=== PATIENT | male | born 1965 | race Caucasian/White ===

== ENCOUNTER 2016-09-28 15:40 | Emergency (ER) | payer OTHER ==
[~2016-09-28] VITALS: Ht 180.3 cm; Wt 87.5 kg
[2016-09-28 15:50] VITALS: Ht 180.3 cm; Wt 87.5 kg
[2016-09-28] MEDS ORDERED: SODIUM CHLORIDE 0.9% 1000ML 1,000 ML IV STA ×2 (16:08)
[2016-09-28 16:36] LABS: URINE APPEARANCE CLOUDY (CLEAR); URINE BILIRUBIN NEG (NEG); URINE COLOR DK YELLOW; URINE EPITHELIAL CELL AUTO 20-30 /lpf (0-5); URINE NITRITE NEG (NEG); URINE SPECIFIC GRAVITY 1.034 (1.000-1.030); UROBILINOGEN NEG (NEG)
[2016-09-28 16:46] LABS: MANUAL MICROSCOPIC REQUIRED? NO; REVIEW REQ? YES
[2016-09-28 16:49] LABS: BUN/CREATININE RATIO 13.3 (10-20); CALCIUM 8.7 mg/dl (8.5-10.1); CREATININE 1.5 mg/dl (0.60-1.40); MAGNESIUM 2.1 mg/dl (1.8-2.4); POTASSIUM 3.5 mmol/L (3.5-5.1)
[2016-09-28] MEDS ORDERED: LISI-461 PO (16:52)
[2016-09-28 16:53] LABS: HEMATOCRIT 42.6 % (42-52); MEAN CELL VOLUME 89.5 fL (80-100); MEAN CORPUSCULAR HEMOGLOBIN 31.1 pg (25-34); MEAN CORPUSCULAR HGB CONC 34.7 g/dl (32-36); MEAN PLATELET VOLUME 10.2 fL (7.4-10.4); PLATELET COUNT 94 K/uL (130-400); RED BLOOD COUNT 4.76 M/uL (4.7-6.1); WHITE BLOOD COUNT 5.69 K/uL (4.8-10.8)
[2016-09-28] MEDS ORDERED: ATOR10TA82 PO (16:53)
[2016-09-28] MEDS ORDERED: ASPI81TA28 PO (16:53)
[2016-09-28 16:54] LABS: BASO % 0.2 %; BASO ABS # 0.01 K/uL (0-0.2); COMPLETE YES; IG% 0.4 %; LYMPH ABS # 0.34 K/uL (1.2-3.4); MONO % 1.8 %; NEUT % 91.6 %; PLT ESTIMATE DECREASED
[2016-09-28 17:12] LABS: URINE MUCUS PRESENT (NONE PRSENT)
[2016-09-28 17:15] LABS: URINE PATH CASTS 5-10 GRANULAR CASTS /lpf (0)
[2016-09-28 17:18] LABS: ZZUR CULT IF INDIC CLEAN CATCH YES
--- NOTE | 2016-09-28 17:58 | EMERGENCY ROOM VISIT NOTE ---
History First contact with patient: 15:55 Chief Complaint: REFERRED BY DOCTOR Stated Complaint: DEHYDRATION, REFERRED History of Present Illness The patient is a 51 year old male who presents to the Emergency Room for evaluation of dehydration. The patient states that he has had a fever and fatigue for the past 3 days. He was seen at his primary care provider's office today and sent here for possible dehydration. He states that he has been feeling tired and worn out. He reports very minimal nausea. He denies any other symptoms. He has not had sore throat, neck pain, headache, abdominal pain , vomiting, diarrhea, earaches or cough. He states that his urine has been dark. He was told there was blood and protein in his urine. He states that he took ibuprofen prior to arrival and is feeling much better at this time. He has not had much to eat or drink in the past few days. Review of Systems A complete 10 point review of systems was reviewed with the patient with pertinent positives and negatives as per history of present illness. All else were negative. Social History Smoking Status: Never Smoker Current/Historical Medications Scheduled Aspirin (Aspirin Ec), 81 MG PO QAM Atorvastatin (Lipitor), 10 MG PO QAM Lisinopril (Zestril), 10 MG PO DAILY Allergies Coded Allergies: No Known Allergies (Unverified , 09/28/16) Physical Exam Vital Signs Date Time Temp Pulse Resp B/P (MAP) Pulse Ox O2 Delivery O2 Flow Rate FiO2 09/28/16 18:33 89 20 112/79 100 09/28/16 18:01 36.7 87 18 113/73 99 09/28/16 15:50 36.6 91 18 101/67 98 Room Air Physical Exam VITALS: Vitals are noted on the nurse's note and reviewed by myself. Vital signs stable. GENERAL: This is a 51-year-old male, in no acute distress, nondiaphoretic, well- developed well-nourished. HEENT: Normocephalic. PERRLA. EOMI. Nares patent. Mucous membranes slightly dry. Neck is supple without nuchal rigidity. HEART: Regular rate and rhythm without murmurs gallops or rubs. LUNGS: Clear to auscultation bilaterally without wheezes, rales or rhonchi. ABDOMEN: Soft, no tenderness to palpation. NEURO: Patient was alert and oriented to person place and time. Medical Decision & Procedures Laboratory Results 09/28/16 16:15 Red Blood Count 4.76, Mean Corpuscular Volume 89.5, Mean Corpuscular Hemoglobin 31.1, Mean Corpuscular Hemoglobin Concent 34.7, Mean Platelet Volume 10.2, Neutrophils (%) (Auto) 91.6, Lymphocytes (%) (Auto) 6.0, Monocytes (%) (Auto) 1.8, Eosinophils (%) (Auto) 0.0, Basophils (%) (Auto) 0.2, Neutrophils # (Auto) 5.22, Lymphocytes # (Auto) 0.34, Monocytes # (Auto) 0.10, Eosinophils # (Auto) 0.00, Basophils # (Auto) 0.01 09/28/16 16:15 Test 09/28/16 16:15 White Blood Count 5.69 K/uL (4.8-10.8) Red Blood Count 4.76 M/uL (4.7-6.1) Hemoglobin 14.8 g/dL (14.0-18.0) Hematocrit 42.6 % (42-52) Mean Corpuscular Volume 89.5 fL (80-100) Mean Corpuscular Hemoglobin 31.1 pg (25-34) Mean Corpuscular Hemoglobin Concent 34.7 g/dl (32-36) Platelet Count 94 K/uL (130-400) Mean Platelet Volume 10.2 fL (7.4-10.4) Neutrophils (%) (Auto) 91.6 % Lymphocytes (%) (Auto) 6.0 % Monocytes (%) (Auto) 1.8 % Eosinophils (%) (Auto) 0.0 % Basophils (%) (Auto) 0.2 % Neutrophils # (Auto) 5.22 K/uL (1.4-6.5) Lymphocytes # (Auto) 0.34 K/uL (1.2-3.4) Monocytes # (Auto) 0.10 K/uL (0.11-0.59) Eosinophils # (Auto) 0.00 K/uL (0-0.5) Basophils # (Auto) 0.01 K/uL (0-0.2) RDW Standard Deviation 40.3 fL (36.4-46.3) RDW Coefficient of Variation 12.3 % (11.5-14.5) Immature Granulocyte % (Auto) 0.4 % Immature Granulocyte # (Auto) 0.02 K/uL (0.00-0.02) Platelet Estimate DECREASED Urine Color DK YELLOW Urine Appearance CLOUDY (CLEAR) Urine pH 5.0 (4.5-7.5) Urine Specific [place] 1.034 (1.000-1.030) Urine Protein 2+ (NEG) Urine Glucose (UA) NEG (NEG) Urine Ketones TRACE (NEG) Urine Occult Blood 1+ (NEG) Urine Nitrite NEG (NEG) Urine Bilirubin NEG (NEG) Urine Urobilinogen NEG (NEG) Urine Leukocyte Esterase NEG (NEG) Urine WBC (Auto) 1-5 /hpf (0-5) Urine RBC (Auto) 0-4 /hpf (0-4) Urine Hyaline Casts (Auto) 0 /lpf (0-5) Urine Epithelial Cells (Auto) 20-30 /lpf (0-5) Urine Bacteria (Auto) 1+ (NEG) Urine Pathogenic Casts 5-10 GRANULAR CASTS /lpf (0) Urine Mucus PRESENT (NONE PRSENT) Urine Yeast (Auto) (NONE PRSENT) Anion Gap 12.0 mmol/L (3-11) Est Creatinine Clear Calc Drug Dose 62.7 ml/min Estimated GFR () 62.0 Estimated GFR (Non- 53.5 BUN/Creatinine Ratio 13.3 (10-20) Calcium Level 8.7 mg/dl (8.5-10.1) Magnesium Level 2.1 mg/dl (1.8-2.4) Total Bilirubin 0.8 mg/dl (0.2-1) Aspartate Amino Transf (AST/SGOT) 94 U/L (15-37) Alanine Aminotransferase (ALT/SGPT) 82 U/L (12-78) Alkaline Phosphatase 91 U/L (45-117) Total Creatine Kinase 139 U/L (39-308) Total Protein 8.1 gm/dl (6.4-8.2) Albumin 4.0 gm/dl (3.4-5.0) Globulin 4.1 gm/dl (2.5-4.0) Albumin/Globulin Ratio 1.0 (0.9-2) Hepatitis B Surface Antigen NEG (NEG) Hepatitis C Antibody NEG (NEG) HIV (1&2) Ab and P24 Ag, 4th Gener NEG (NEG) Medications Administered Medications (Trade) Dose Ordered Sig/Jess Route Start Time Stop Time Status Last Admin Dose Admin Sodium Chloride 1,000 ml @ 999 mls/hr Q1H1M STAT IV 09/28/16 16:08 09/28/16 17:08 DC 09/28/16 16:21 999 MLS/HR Sodium Chloride 1,000 ml @ 999 mls/hr Q1H1M STAT IV 09/28/16 16:08 09/28/16 17:08 DC 09/28/16 16:22 999 MLS/HR ECG Rate (beats per minute): 83 Rhythm: normal sinus Findings: no acute ischemic change, no ectopy Medical Decision Differential diagnosis includes dehydration, viral illness, acute kidney injury , urinary tract infection, among others. The patient is a 51-year-old male who presents today complaining of fatigue and febrile illness. Labs revealed no leukocytosis or concerning anemia. Patient has a mild thrombocytopenia of unknown cause. Urinalysis was not suggestive of infection, but did show proteinuria. EKG showed a normal sinus rhythm. The patient did not have any significant complaints on my evaluation. He felt dehydrated, but did have improvement after being given ibuprofen prior to arrival and 2 L normal saline solution here. He does not have a fever or tachycardia at this time. Patient does have an elevation of creatinine at 1.50 and elevation of BUN at 20, likely secondary to dehydration. He was encouraged to increase fluids at home. The patient does have a fever of unknown cause. He is mildly thrombocytopenic and LFTs are mildly elevated. I did discuss with the patient if there was any possibility of acute hepatitis or HIV infection. He did agree to testing and these are pending. Otherwise, the patient may have a viral illness and was instructed to continue ibuprofen and Tylenol, increase fluids, and follow-up with his primary care provider. The patient's case was reviewed with Dr. Peterson, ED attending physician, who agreed with my assessment and treatment plan. Based on the patient's presentation and work up, I feel the patient is stable for outpatient treatment. The patient was educated to return to the emergency department for any worsening of their current condition or new/concerning symptoms. He will follow up with his PCP. Medication reconciliation: I attest that I have personally reviewed the patient 's current medication list. Blood pressure screening: Patient was found to have normal blood pressure on screening and does not require follow-up. Impression Primary Impression: Febrile illness Additional Impression: Dehydration Departure Information Dispostion Home / Self-Care Condition GOOD Referrals Reggie Conde III, M.D. (PCP) Patient Instructions My [facility] Additional Instructions You were treated today for a febrile illness. Some results are still pending and we will contact you with these results. For pain/fever control, you can use the following [id number] medicines ( if >12 yo): - Regular strength (325mg/tab) Tylenol (acetaminophen) 2 tabs every 4-6 hours as needed. Do not exceed 12 tablets in a 24 hour period. Avoid taking more than 4 grams (4000 mg) of Tylenol per day. This includes any other sources of acetaminophen you may take on a regular basis. - Regular strength (200 mg/tab) Advil (ibuprofen) 1-2 tabs every 4-6 hours as needed. Do not exceed a dose of 3200 mg per day. You did have some abnormal lab results, including an elevated kidney function and low platelets. You should have this rechecked by your primary care provider. Call them for appointment. Return to the emergency department with any worsening or new/concerning symptoms. Problem Qualifiers
[2016-09-28 18:01] VITALS: TEMP 36.7
[2016-09-28 18:33] VITALS: BP 112/79; PULSE 89; O2SAT 100
[2016-10-02] MEDS ORDERED: DXY100 PO ×2 (10:13→10:14)
[2016-10-02] MEDS ORDERED: LCTX PO ×2 (10:13→10:14)
== END 2016-09-28 18:51 | disposition home or self-care (01) ==
LOC: C.EDB 15:41
DX: E86.0 Dehydration (principal); R50.9 Fever, unspecified; Z79.82 Long term (current) use of aspirin; Z79.899 Other long term (current) drug therapy

== ENCOUNTER 2016-09-29 17:47 | Inpatient (IN) | payer OTHER ==
[~2016-09-29] VITALS: Ht 180.3 cm; Wt 88.0 kg
[~2016-09-29 17:47] MED LIST: ASPI81TA28 PO; ATOR10TA82 PO; LISI-461 PO
[2016-09-29] MEDS ORDERED: SODIUM CHLORIDE 0.9% 1000ML 1,000 ML IV STA (18:17)
--- NOTE | 2016-09-29 18:22 | EMERGENCY ROOM VISIT NOTE ---
History First contact with patient: 18:13 Chief Complaint: DEHYDRATION Stated Complaint: DEHYDRATED,CAN'T SLEEP,VERY HARD TO EAT Nursing Triage Summary: triage note; pt reports "i was here yesterday for the same, i am tired and haven't slept since tuesday, i can't eat, i have some diarrhea and generalized pain, i have some nausea." History of Present Illness The patient is a 51 year old male who presents to the Emergency Room with complaints of 3 days of fever and unable to sleep. Fever started suddenly. No cough, nasal congestion, neck pain, light sensitivity, headache, vomiting, constipation, chest pain or shortness of breath. He has noticed some mild intermittent abdominal cramping, mild nausea (but still eating and drinking) and diarrhea (x2 watery BM since being seen in the ER). He felt relatively well after leaving the ER yesterday after his fever broke but then it returned last night and he was unable to sleep again. He is not taking anything regularly for the fever. Last had acetaminophen on Tuesday and had ibuprofen in the ER yesterday. No recent travel, exposure to sick contacts. Review of Systems See HPI for pertinent positives & negatives. A total of 10 systems reviewed and were otherwise negative. Past Medical/Surgical History Medical Problems: (1) Thrombocytopenia Social History Smoking Status: Never Smoker Smokeless Tobacco Use: No Alcohol Use: none Drug Use: none Marital Status: Housing Status: lives with family Current/Historical Medications Scheduled Aspirin (Aspirin Ec), 81 MG PO QAM Atorvastatin (Lipitor), 10 MG PO QAM Lisinopril (Zestril), 10 MG PO DAILY Allergies Coded Allergies: No Known Allergies (Unverified , 09/29/16) Physical Exam Vital Signs Date Time Temp Pulse Resp B/P (MAP) Pulse Ox O2 Delivery O2 Flow Rate FiO2 09/29/16 20:05 37.6 88 16 97/67 98 Room Air 09/29/16 19:09 96 16 107/68 96 Room Air 09/29/16 17:53 39.1 103 18 134/82 96 Room Air Physical Exam VITAL SIGNS: were reviewed as above GENERAL: mild acute distress from fever, very red and warm SKIN: Warm dry and pink, flushed, no rashes HEAD: Normocephalic and atraumatic EYES: extraocular muscles intact, pupils equal and reactive to light, no sensitivity to light OROPHARYNX: non erythematous, clear and moist NECK: Supple, no adenopathy or meningismus/neck pain LUNGS: Regular rate, no respiratory distress, clear to auscultation, no accessory muscle use HEART: Tachycardia, regular rhythm, heart sounds 1+2, no murmurs ABDOMEN: Soft and nontender, bowel sounds normal BACK: no CVA tenderness, no central spinal tenderness EXTREMITIES: Warm and well perfused, no calf tenderness/swelling, no pedal edema , peripheral capillary refill < 2 seconds NEUROLOGICALLY: Awake alert and oriented without focal deficit. Cranial nerves 2 -12 intact. Upper and lower motor and sensory examination normal. Cerebellar testing is within normal limits. There is no nystagmus. There is no facial droop. Speech is clear. Vision is grossly normal. MUSCULOSKELETAL: Good muscle tone. No evidence of trauma Medical Decision & Procedures ER Provider Diagnostic Interpretation: CHEST 2 VIEWS ROUTINE CLINICAL HISTORY: Fever of unknown origin COMPARISON STUDY: No previous studies for comparison. FINDINGS: Lung volumes are normal. No consolidation is identified. No pneumothorax or pleural effusion is identified. Cardiac size is normal. Mediastinal contours are normal. There is no evidence of pulmonary edema. IMPRESSION: No acute cardiopulmonary findings. Electronically signed by: Rosendo Harris M.D. 09/29/2016 8:19 PM Dictated Date/Time: 09/29/2016 8:18 PM ABDOMINAL ULTRASOUND, RIGHT UPPER QUADRANT HISTORY: Elevated transaminitis. COMPARISON: None. FINDINGS: Liver morphology is normal. Hepatic echogenicity is mildly increased. This suggests fatty infiltration with small areas of sparing within the gallbladder fossa. No gallstones are identified. Gallbladder wall thickness is at the upper limits of normal. There is no biliary ductal dilatation. The common bile duct measures 4 mm in caliber. The pancreatic body is normal. The head and tail are obscured. There is no right hydronephrosis. Note is made of a 4.9 cm anechoic right renal lesion consistent with a cyst. IMPRESSION: 1. Suspected fatty infiltration of the liver. 2. No gallstones or biliary ductal dilatation. Electronically signed by: Rosendo Harris M.D. 09/29/2016 8:58 PM Dictated Date/Time: 09/29/2016 8:55 PM Laboratory Results 09/29/16 18:40 Red Blood Count 4.33, Mean Corpuscular Volume 87.8, Mean Corpuscular Hemoglobin 30.0, Mean Corpuscular Hemoglobin Concent 34.2, Mean Platelet Volume 12.1, Neutrophils (%) (Auto) 79.2, Lymphocytes (%) (Auto) 13.3, Monocytes (%) (Auto) 7.5, Eosinophils (%) (Auto) 0.0, Basophils (%) (Auto) 0.0, Neutrophils # (Auto) 2.44, Lymphocytes # (Auto) 0.41, Monocytes # (Auto) 0.23, Eosinophils # (Auto) 0.00, Basophils # (Auto) 0.00 09/29/16 18:40 Test 09/29/16 18:40 White Blood Count 3.08 K/uL (4.8-10.8) Red Blood Count 4.33 M/uL (4.7-6.1) Hemoglobin 13.0 g/dL (14.0-18.0) Hematocrit 38.0 % (42-52) Mean Corpuscular Volume 87.8 fL (80-100) Mean Corpuscular Hemoglobin 30.0 pg (25-34) Mean Corpuscular Hemoglobin Concent 34.2 g/dl (32-36) Platelet Count 28 K/uL (130-400) Mean Platelet Volume 12.1 fL (7.4-10.4) Neutrophils (%) (Auto) 79.2 % Lymphocytes (%) (Auto) 13.3 % Monocytes (%) (Auto) 7.5 % Eosinophils (%) (Auto) 0.0 % Basophils (%) (Auto) 0.0 % Neutrophils # (Auto) 2.44 K/uL (1.4-6.5) Lymphocytes # (Auto) 0.41 K/uL (1.2-3.4) Monocytes # (Auto) 0.23 K/uL (0.11-0.59) Eosinophils # (Auto) 0.00 K/uL (0-0.5) Basophils # (Auto) 0.00 K/uL (0-0.2) RDW Standard Deviation 39.4 fL (36.4-46.3) RDW Coefficient of Variation 12.2 % (11.5-14.5) Immature Granulocyte % (Auto) 0.0 % Immature Granulocyte # (Auto) 0.00 K/uL (0.00-0.02) Platelet Estimate SIGNIFIC DECREASED Immature Platelet Fraction 12.2 % (0.9-8.3) Red Blood Cell Morphology Unremarkable Erythrocyte Sedimentation Rate 24 mm/hr (0-14) Absolute Reticulocyte Count 0.02 10^6/uL (0.02-0.10) Percent Reticulocyte Count 0.5 % (0.5-2.0) Prothrombin Time 13.2 SECONDS (9.0-12.0) Prothromb Time International Ratio 1.2 (0.9-1.1) Activated Partial Thromboplast Time 34.3 SECONDS (21.0-31.0) Partial Thromboplastin Ratio 1.3 Anion Gap 11.0 mmol/L (3-11) Est Creatinine Clear Calc Drug Dose 62.7 ml/min Estimated GFR () 62.0 Estimated GFR (Non- 53.5 BUN/Creatinine Ratio 11.3 (10-20) Lactic Acid Level 1.4 mmol/L (0.4-2.0) Calcium Level 7.9 mg/dl (8.5-10.1) Total Bilirubin 0.8 mg/dl (0.2-1) Direct Bilirubin 0.2 mg/dl (0-0.2) Aspartate Amino Transf (AST/SGOT) 166 U/L (15-37) Alanine Aminotransferase (ALT/SGPT) 108 U/L (12-78) Alkaline Phosphatase 107 U/L (45-117) Total Creatine Kinase 300 U/L (39-308) Total Protein 7.0 gm/dl (6.4-8.2) Albumin 3.2 gm/dl (3.4-5.0) Lipase 353 U/L (73-393) Procalcitonin 2.62 ng/ml (0-0.5) Lyme Disease IgG Antibody NEG (NEG) Lyme Disease IgM Antibody NEG (NEG) Monoscreen NEG (NEG) Medications Administered Medications (Trade) Dose Ordered Sig/Jess Route Start Time Stop Time Status Last Admin Dose Admin Sodium Chloride 1,000 ml @ 999 mls/hr Q1H1M STAT IV 09/29/16 18:17 09/29/16 19:17 DC 09/29/16 19:07 999 MLS/HR Acetaminophen (Tylenol Tab) 650 mg NOW STAT PO 09/29/16 18:33 09/29/16 19:17 DC 09/29/16 19:09 650 MG ED Course 6:15am Complete history and physical performed, Sepsis labs ordered, antibiotics deferred given most likely diagnosis on admission of gastroenteritis , acetaminophen given for fever Discussed case with Dr Richardson who separately performed history and examination Labs showed worsening transaminitis, therefore US liver ordered Critical lab Plt 28. No active bleeding on re-examination. Called [facility] Hematology for management advice (see below) Patient was referred to [facility] hospitalist team for admission Zosyn ordered due to sepsis Medical Decision Prior records/ancillary studies reviewed. Triage Nursing notes reviewed. Additional history obtained from patient. The patient's history was concerning for persistent fever. Differential diagnosis: Etiologies such as viral syndrome, otitis, pharyngitis, pneumonia, influenza, meningitis, encephalitis, urinary tract infection, sepsis, bacteremia, as well as others were entertained. Physical examination: as above ER treatment provided: acetaminophen, IV fluids On reassessment the patient felt no better. Diagnostics interpreted by me: The labs revealed elevated transaminitis with pancytopenia, WBC 3.08, Hgb 13, Plt 28 Imaging studies: US liver limited - fatty liver disease only CXR - no active disease Consultation: [facility] hematology were contacted and advised additional labs (see below), no steroids at this time as not confirmed as ITP. Advised inpatient admission A consultation was placed with hospitalist. The case was discussed and diagnostics were reviewed. The patient was evaluated in the ER for further treatment. This appears to be consistent with sepsis (suspected GI tract given diarrhea) with thrombocytopenia (ITP vs. TTP vs. DIC) and worsening transaminitis. By the evaluation outlined above emergent etiologies such as otitis, pharyngitis, pneumonia, meningitis, urinary tract infection as well as others were deemed relatively unlikely. The patient was informed about the findings as listed above. All questions were answered and he was pleased with the treatment and plan for admission. Return instructions were outlined and the patient was discharged in stable condition. Consults Time Called: 19:36 Consulting Physician: Dr Lu ([facility] Heme/Onc) Returned Call: 19:50 Advised admission to hospitalist service No steroids indicated at present Additional labs recommended: peripheral smear, retic count, haptoglobin, d-dimer , fibrinogen, fibrin degradation products, immature platelet fraction Additional Consults: Time Called: 20:00 Consulted Physician: Dr Petty ([facility] Hospitalist Service) Returned Call: 20:05 Impression Primary Impression: Sepsis Additional Impressions: Pancytopenia Transaminitis Dehydration Departure Information Dispostion Being Evaluated By Hospitalist Condition FAIR Referrals Reggie Conde III, M.D. (PCP) Patient Instructions My [facility] Resident Tracking Resident Involvement: Resident Care Provided Care Provided: Adult Hospital Medicine Problem Qualifiers Primary Impression: Sepsis Sepsis type: sepsis due to unspecified organism Qualified Codes: A41.9 - Sepsis, unspecified organism
[2016-09-29] MEDS ORDERED: ACETAMINOPHEN 325 MG TAB PO STA (18:33)
[2016-09-29 19:10] LABS: BUN/CREATININE RATIO 11.3 (10-20); CALCIUM 7.9 mg/dl (8.5-10.1); CREATININE 1.5 mg/dl (0.60-1.40); POTASSIUM 3.4 mmol/L (3.5-5.1)
[2016-09-29 19:27] LABS: COMPLETE YES; LYMPH % 13.3 %; LYMPH ABS # 0.41 K/uL (1.2-3.4); MEAN CELL VOLUME 87.8 fL (80-100); MEAN CORPUSCULAR HGB CONC 34.2 g/dl (32-36); MEAN PLATELET VOLUME 12.1 fL (7.4-10.4); MONO % 7.5 %; NEUT % 79.2 %; PLATELET COUNT 28 K/uL (130-400); PLT ESTIMATE SIGNIFIC DECREASED; RED BLOOD COUNT 4.33 M/uL (4.7-6.1); WHITE BLOOD COUNT 3.08 K/uL (4.8-10.8)
[2016-09-29 19:38] LABS: INR 1.2 (0.9-1.1); PARTIAL THROMBOPLASTIN RATIO 1.3; PROTHROMBIN TIME (PATIENT) 13.2 SECONDS (9.0-12.0)
[2016-09-29] MEDS ORDERED: PIPERACILLIN/TAZOBACTAM 3.375 GM/100ML D5W IV STA (20:09)
[2016-09-29] MEDS ORDERED: SODIUM CHLORIDE 0.9% 1000ML 1,000 ML IV SCH (20:15)
[2016-09-29] MEDS ORDERED: ACETAMINOPHEN 325 MG TAB PO PRN (20:15)
--- NOTE | 2016-09-29 20:20 | DIAGNOSTIC IMAGING REPORT ---
CHEST 2 VIEWS ROUTINE CLINICAL HISTORY: Fever of unknown origin COMPARISON STUDY: No previous studies for comparison. FINDINGS: Lung volumes are normal. No consolidation is identified. No pneumothorax or pleural effusion is identified. Cardiac size is normal. Mediastinal contours are normal. There is no evidence of pulmonary edema. IMPRESSION: No acute cardiopulmonary findings. Electronically signed by: Rosendo Harris M.D. 09/29/2016 8:19 PM Dictated Date/Time: 09/29/2016 8:18 PM
--- NOTE | 2016-09-29 20:21 | History and Physical ---
History & Physical Date & Time of Service: Sep 29, 2016 at 20:20 Chief Complaint: Dehydrated,Can't Sleep,Very Hard To Eat Primary Care Physician: Reggie Conde III, M.D. History of Present Illness Source: patient The patient is a 51 year old male with no significant PMH, who presents to the Emergency Room with complaints of fever. Patient's symptoms started 3 days ago with sudden onset of fatigue followed by fever for which he came to ER from PCP office. on 09/28/16- in ER- CBC- no leucocytosis, platelets-94, creatinine1.50 - was discharged home with possible diagnosis of viral illness. Returned back to ER because he felt worsening of fatigue, with new onset nausea, headaches, continued to have poor appetite- decreased PO intake. Had 2 loose BMs today with no blood. No abdominal pain, vomiting, cough, SOB, chest pain, rash, leg swelling, joint pains. Admits to few tick bites 1.5 weeks ago when [place]. No recent travel, exposure to sick contacts. In ED, febrile with 39.1, CBC- Wbc 3.08, platelets- 28, creatinine 1.50, K 3.4, AST/ALT- worsened from yesterday - 166/108. ED physician discussed with judge's clerk, who recommended blood tests which were ordered. Received a dose of IV Zosyn in ER. We will admit him for further evaluation and management of febrile illness with thrombocytopenia/leucopenia, PASTOR. Social History Smoking Status: Never Smoker Smokeless Tobacco Use: No Drug Use: none Marital Status: Allergies Coded Allergies: No Known Allergies (Unverified , 09/29/16) Home Medications Scheduled Aspirin (Aspirin Ec), 81 MG PO QAM Atorvastatin (Lipitor), 10 MG PO QAM Lisinopril (Zestril), 10 MG PO DAILY Review of Systems Constitutional: + fever, No weight loss Eyes: No redness, No discharge ENT: No hearing loss, No nasal symptoms Respiratory: No cough, No sputum, No wheezing, No shortness of breath Cardiovascular: No chest pain, No edema, No palpitations Abdomen: + nausea, + diarrhea, No pain, No vomiting, No GI bleeding Musculoskeletal: + muscle pain, No joint pain Genitourinary - Male: No hematuria, No urinary frequency Neurologic: No memory loss, No paralysis, No weakness Psychiatric: No depression symptoms Endocrine: + fatigue Hematologic / Lymphatic: No abnormal bleeding/bruising Integumentary: No rash Physical Exam Vital Signs Date Time Temp Pulse Resp B/P (MAP) Pulse Ox O2 Delivery O2 Flow Rate FiO2 09/29/16 20:05 37.6 88 16 97/67 98 Room Air 09/29/16 19:09 96 16 107/68 96 Room Air 09/29/16 17:53 39.1 103 18 134/82 96 Room Air General Appearance: no apparent distress Head: normocephalic, atraumatic Eyes: PERRL ENT: hearing grossly normal Neck: supple, no JVD Respiratory/Chest: chest non-tender, lungs clear, normal breath sounds, no respiratory distress, no accessory muscle use Cardiovascular: regular rate, rhythm, no edema, no murmur Abdomen/GI: normal bowel sounds, non tender, soft, no organomegaly Back: no CVA tenderness Extremities/Musculoskelatal: no calf tenderness, no pedal edema Neurologic/Psych: no motor/sensory deficits, alert, oriented x 3 Skin: normal color, no rash Lymphatic: no adenopathy Diagnostics Laboratory Results Results Past 24 Hours Test 09/29/16 18:40 09/29/16 19:56 09/29/16 20:05 09/29/16 20:13 Range/Units White Blood Count 3.08 4.8-10.8 K/uL Red Blood Count 4.33 4.7-6.1 M/uL Hemoglobin 13.0 14.0-18.0 g/dL Hematocrit 38.0 42-52 % Mean Corpuscular Volume 87.8 80-100 fL Mean Corpuscular Hemoglobin 30.0 25-34 pg Mean Corpuscular Hemoglobin Concent 34.2 32-36 g/dl Platelet Count 28 130-400 K/uL Mean Platelet Volume 12.1 7.4-10.4 fL Neutrophils (%) (Auto) 79.2 % Lymphocytes (%) (Auto) 13.3 % Monocytes (%) (Auto) 7.5 % Eosinophils (%) (Auto) 0.0 % Basophils (%) (Auto) 0.0 % Neutrophils # (Auto) 2.44 1.4-6.5 K/uL Lymphocytes # (Auto) 0.41 1.2-3.4 K/uL Monocytes # (Auto) 0.23 0.11-0.59 K/uL Eosinophils # (Auto) 0.00 0-0.5 K/uL Basophils # (Auto) 0.00 0-0.2 K/uL RDW Standard Deviation 39.4 36.4-46.3 fL RDW Coefficient of Variation 12.2 11.5-14.5 % Immature Granulocyte % (Auto) 0.0 % Immature Granulocyte # (Auto) 0.00 0.00-0.02 K/uL Platelet Estimate SIGNIFIC DECREASED Red Blood Cell Morphology Unremarkable Prothrombin Time 13.2 9.0-12.0 SECONDS Prothromb Time International Ratio 1.2 0.9-1.1 Activated Partial Thromboplast Time 34.3 21.0-31.0 SECONDS Partial Thromboplastin Ratio 1.3 Sodium Level 135 136-145 mmol/L Potassium Level 3.4 3.5-5.1 mmol/L Chloride Level 98 98-107 mmol/L Carbon Dioxide Level 26 21-32 mmol/L Anion Gap 11.0 3-11 mmol/L Blood Urea Nitrogen 17 7-18 mg/dl Creatinine 1.50 0.60-1.40 mg/dl Est Creatinine Clear Calc Drug Dose 62.7 ml/min Estimated GFR () 62.0 Estimated GFR (Non- 53.5 BUN/Creatinine Ratio 11.3 10-20 Random Glucose 132 70-99 mg/dl Lactic Acid Level 1.4 0.4-2.0 mmol/L Calcium Level 7.9 8.5-10.1 mg/dl Total Bilirubin 0.8 0.2-1 mg/dl Direct Bilirubin 0.2 0-0.2 mg/dl Aspartate Amino Transf (AST/SGOT) 166 15-37 U/L Alanine Aminotransferase (ALT/SGPT) 108 12-78 U/L Alkaline Phosphatase 107 45-117 U/L Total Creatine Kinase 300 39-308 U/L Total Protein 7.0 6.4-8.2 gm/dl Albumin 3.2 3.4-5.0 gm/dl Lipase 353 73-393 U/L Test 09/29/16 20:14 Range/Units Microbiology Results 09/29/16 Blood Culture, Received Pending 09/29/16 Blood Culture, Received Pending Diagnostic Radiology CXR- No acute findings. Impression Assessment and Plan FEVER: Likely Tick borne illness vs viral infection given the presentation Patient presented with fever, fatigue, nausea associated with thrombocytopenia, leucopenia, mildly elevated LFTs. Had few tick bites 1.5 weeks ago when he went into [facility]. Can see similar presentation with lymes/anaplasmosis co infection and with symptoms of acute onset, young patient with no prior illness, likely this could be the cause. -Will start him on Doxycycline empirically and see if clinically feels better and blood work improves. Received zosyn in ER. Would avoid any other antibiotics as no localized signs of bacterial infection and it can worsen if it is lymes. -IVF -Blood cx x 2, UA- yesterday- no sig UTI, Urine cx- neg, CXR - no sig abnormalities -Work up sent today- Lymes , Anaplasmosis antibodies, ESR, procalcitonin, CRP, [place] test, C diff PANCYTOPENIA Specifically thrombocytopenia, leucopenia--> worsened compared to yesterday -Could be secondary to tick borne illness vs viral illness. -ITP possibility considered per discussion with Hematology, though doubt this is ITP, seems more likely to be infection related. -Work up sent- Peripheral smear, FDP, Fibrinogen, Haptoglobin, Retic count, D dimer, Immature platelet fraction, LDH per judge's clerk -No signs of active bleeding, so for now monitor closely -ER consulted Hematology. MILDLY ELEVATED LFTS Worsened compared to yesterday Likely associated with above. -US ordered by ER physician - follow up -Monitor trend. PASTOR Likely pre renal secondary to volume depletion, febrile illness -IVF at 100 cc/hour -Avoid nephrotoxic medications -Monitor MILD HYPOKALEMIA Likely secondary to above, decreased PO intake -Replaced, -Monitor DVT PROPHYLAXIS Low risk SCDS/TEDS re: thrombocytopenia DISPOSITION Admit to med-surg Level of Care Med/Surg Resuscitation Status FULL RESUSCITATION VTE Prophylaxis VTE Risk Assessment Done? Y/N: Yes Risk Level: Low
[2016-09-29 20:30] LABS: IPF 12.2 % (0.9-8.3)
[2016-09-29] MEDS ORDERED: POTASSIUM CHLORIDE 10 MEQ TABCR PO SCH (20:30)
--- NOTE | 2016-09-29 20:59 | DIAGNOSTIC IMAGING REPORT ---
ABDOMINAL ULTRASOUND, RIGHT UPPER QUADRANT HISTORY: Elevated transaminitis. COMPARISON: None. FINDINGS: Liver morphology is normal. Hepatic echogenicity is mildly increased. This suggests fatty infiltration with small areas of sparing within the gallbladder fossa. No gallstones are identified. Gallbladder wall thickness is at the upper limits of normal. There is no biliary ductal dilatation. The common bile duct measures 4 mm in caliber. The pancreatic body is normal. The head and tail are obscured. There is no right hydronephrosis. Note is made of a 4.9 cm anechoic right renal lesion consistent with a cyst. IMPRESSION: 1. Suspected fatty infiltration of the liver. 2. No gallstones or biliary ductal dilatation. Electronically signed by: Rosendo Harris M.D. 09/29/2016 8:58 PM Dictated Date/Time: 09/29/2016 8:55 PM
[2016-09-29] MEDS ORDERED: PIPERACILL/TAZOBAC IV 3.375 GM in DEXTROSE 5% 100ML IV ONE (21:00)
[2016-09-29 21:10] LABS: LYME DISEASE AB IGG NEG (NEG); LYME DISEASE AB IGM NEG (NEG)
[2016-09-29] MEDS ORDERED: ZOLPIDEM TARTRATE 5 MG TAB PO ONE (21:15)
[2016-09-29] MEDS: SODIUM CHLORIDE 0.9% 1000ML 1,000 ML IV SCH (21:15)
[2016-09-29 21:18] VITALS: BP 93/49; PULSE 71; TEMP 36.7; O2SAT 95
[2016-09-29 21:22] VITALS: BP 93/49; PULSE 71; TEMP 36.7; O2SAT 95; Ht 180.3 cm; Wt 88.0 kg
[2016-09-29] MEDS: DOXYCYCLINE HYCLATE 100 MG CAP PO SCH (21:51)
[2016-09-29 22:22] LABS: FIBRINOGEN* 317 mg/dl (184-400)
[2016-09-29 23:16] VITALS: BP 108/71; PULSE 78; TEMP 36.6; O2SAT 98
--- NOTE | 2016-09-29 23:49 | EMERGENCY ROOM VISIT NOTE ---
ED Visit Note First contact with patient: 18:11 Resident Physician Supervision Note: Dr. Richar Ireland was resident physician during care of patient. I separately evaluated patient and did history and exam. I discussed the case with the resident and generally agree with the findings and plan. 51 yr old male arrives 24 hours after being seen for dehydration fever of unknown origin. Yesterday with mild LFT elevation and mild thrombocytopenia. Symptoms persistent and worsening. Now with severe thrombocytopenia, doubling of LFTs and clearly unwell appearing. Seems more likely this is ITP rather than TTP. Will give empiric abx though not overtly septic at this time. Hematology aware, will bring in to medical team for further management. Diagnosis: Acute Thrombocytopenia Acute Hepatitis Febrile Illness Documented By: Brad Richardson MD
[2016-09-30 06:10] LABS: BUN/CREATININE RATIO 14.2 (10-20); CALCIUM 8.3 mg/dl (8.5-10.1); CREATININE 1.2 mg/dl (0.60-1.40); POTASSIUM 3.8 mmol/L (3.5-5.1)
[2016-09-30 06:11] LABS: PLATELET COUNT 28 K/uL (130-400)
[2016-09-30 06:13] LABS: ALB/GLOB RATIO 0.8 (0.9-2)
[2016-09-30 06:15] LABS: HEMATOCRIT 37.5 % (42-52); MEAN CELL VOLUME 89.1 fL (80-100); MEAN CORPUSCULAR HEMOGLOBIN 30.4 pg (25-34); MEAN CORPUSCULAR HGB CONC 34.1 g/dl (32-36); MEAN PLATELET VOLUME 12.6 fL (7.4-10.4); RED BLOOD COUNT 4.21 M/uL (4.7-6.1); WHITE BLOOD COUNT 3.61 K/uL (4.8-10.8)
[2016-09-30 06:18] LABS: PLT ESTIMATE SIGNIFIC DECREASED
[2016-09-30 07:48] VITALS: BP 100/65; PULSE 66; TEMP 36.5; O2SAT 98
[2016-09-30] MEDS: SODIUM CHLORIDE 0.9% 1000ML 1,000 ML IV SCH ×2 (08:57→17:31)
[2016-09-30] MEDS: DOXYCYCLINE HYCLATE 100 MG CAP PO SCH ×2 (08:57→21:15)
[2016-09-30] MEDS ORDERED: ATORVASTATIN 10 MG TAB PO SCH (09:00)
--- NOTE | 2016-09-30 13:03 | Medical Consult ---
Consultation Date of Consultation: Sep 30, 2016. Attending Physician: Severo Suarez MD Reason for Consultation: thrombocytopenia History of Present Illness 51-year-old man with no significant past medical history who is admitted with fever. He states that he has been having fevers for past 4 days. He also has fatigue, malaise and decreased appetite and loose stool. He went to ER on September 28, 2016 and [place] [address]. he states that he also has nausea and diarrhea for about 3 days. He denies any abdominal pain. He denies any abdominal pain. He denies any cough or shortness of breath. He denies any chest pain. He denies any dizziness or headaches. He denies any arthralgias or myalgias. [place] [address]. he also has leukopenia with absolute lymphopenia. He also has elevated AST and ALT. He states that he had tick bite about a week and a half ago. He denies any sick contacts. Past Medical/Surgical History PAST MEDICAL HISTORY: Denies any PMH PAST SURGICAL HISTORY: appendectomy about 30 years ago Active Problems: Dehydration Status: Acute Febrile illness Status: Acute Transaminitis Status: Acute thrombocytopenia Family History mother had pancreatic cancer. He denies any family history of any blood or bleeding disorder Social History Smoking Status: Never Smoker Smokeless Tobacco Use: No Drug Use: none Marital Status: Housing Status: lives with family Allergies Coded Allergies: No Known Allergies (Unverified , 09/29/16) Current Inpatient Medications Current Inpatient Medications Medications (Trade) Dose Ordered Sig/Jess Route Start Time Stop Time Status Last Admin Dose Admin Acetaminophen (Tylenol Tab) 650 mg Q6H PRN PO 09/29/16 20:15 10/29/16 20:14 Sodium Chloride 1,000 ml @ 100 mls/hr Q10H IV 09/29/16 21:15 10/29/16 20:14 09/30/16 08:57 100 MLS/HR Doxycycline Hyclate (Vibramycin Cap) 100 mg BID PO 09/29/16 22:00 10/09/16 21:59 09/30/16 08:57 100 MG Review of Systems Constitutional: + fever, + fatigue, No chills, No weight loss, No weakness Eyes: No worsening of vision, No eye pain ENT: No unusual epistaxis, No nasal symptoms, No sore throat, No trouble swallowing Respiratory: No cough, No sputum, No wheezing, No shortness of breath, No dyspnea on exertion, No dyspnea at rest, No hemoptysis Cardiovascular: No chest pain, No orthopnea, No PND, No edema Abdomen: + nausea, + diarrhea, No pain, No vomiting, No constipation, No GI bleeding Musculoskeletal: No joint pain, No muscle pain, No swelling, No calf pain Genitourinary - Male: No hematuria, No dysuria, No urinary frequency Neurologic: No weakness, No numbness/tingling, No vertigo Endocrine: No fatigue Hematologic / Lymphatic: No abnormal bleeding/bruising, No clotting problems, No swollen lymph nodes Integumentary: No rash, No itch Allergic / Immunologic: + environmental allergies, No frequent infections Physical Exam Date Time Temp Pulse Resp B/P (MAP) Pulse Ox O2 Delivery O2 Flow Rate FiO2 09/30/16 08:00 Room Air 09/30/16 07:48 36.5 66 17 100/65 (77) 98 Room Air 09/30/16 00:00 Room Air 09/29/16 23:16 36.6 78 20 108/71 (83) 98 Room Air 09/29/16 21:57 Room Air 09/29/16 21:22 36.7 71 16 93/49 95 Room Air 09/29/16 21:18 36.7 71 16 93/49 (64) 95 Room Air 09/29/16 21:10 74 16 96/61 98 Room Air 09/29/16 20:05 37.6 88 16 97/67 98 Room Air 09/29/16 19:09 96 16 107/68 96 Room Air 09/29/16 17:53 39.1 103 18 134/82 96 Room Air General Appearance: WD/WN, no apparent distress Head: normocephalic, atraumatic Eyes: EOMI, sclerae normal ENT: pharynx normal Neck: supple, no adenopathy, no JVD Respiratory/Chest: chest non-tender, lungs clear, normal breath sounds, no respiratory distress, no accessory muscle use Cardiovascular: regular rate, rhythm, no edema, no gallop, no JVD, no murmur Abdomen/GI: normal bowel sounds, non tender, soft, no organomegaly Back: normal inspection, no CVA tenderness Extremities/Musculoskelatal: no calf tenderness, non-tender Neurologic/Psych: no motor/sensory deficits (grossly), oriented x 3 Laboratory Results Last 24 Hours Test 09/29/16 18:40 09/29/16 21:05 09/30/16 05:10 White Blood Count 3.08 K/uL 3.61 K/uL Red Blood Count 4.33 M/uL 4.21 M/uL Hemoglobin 13.0 g/dL 12.8 g/dL Hematocrit 38.0 % 37.5 % Mean Corpuscular Volume 87.8 fL 89.1 fL Mean Corpuscular Hemoglobin 30.0 pg 30.4 pg Mean Corpuscular Hemoglobin Concent 34.2 g/dl 34.1 g/dl Platelet Count 28 K/uL 28 K/uL Mean Platelet Volume 12.1 fL 12.6 fL Neutrophils (%) (Auto) 79.2 % Lymphocytes (%) (Auto) 13.3 % Monocytes (%) (Auto) 7.5 % Eosinophils (%) (Auto) 0.0 % Basophils (%) (Auto) 0.0 % Neutrophils # (Auto) 2.44 K/uL Lymphocytes # (Auto) 0.41 K/uL Monocytes # (Auto) 0.23 K/uL Eosinophils # (Auto) 0.00 K/uL Basophils # (Auto) 0.00 K/uL RDW Standard Deviation 39.4 fL 40.7 fL RDW Coefficient of Variation 12.2 % 12.6 % Immature Granulocyte % (Auto) 0.0 % Immature Granulocyte # (Auto) 0.00 K/uL Platelet Estimate SIGNIFIC DECREASED SIGNIFIC DECREASED Immature Platelet Fraction 12.2 % Red Blood Cell Morphology Unremarkable Peripheral Blood Smear Path Consult Erythrocyte Sedimentation Rate 24 mm/hr Absolute Reticulocyte Count 0.02 10^6/uL Percent Reticulocyte Count 0.5 % Prothrombin Time 13.2 SECONDS Prothromb Time International Ratio 1.2 Activated Partial Thromboplast Time 34.3 SECONDS Partial Thromboplastin Ratio 1.3 Sodium Level 135 mmol/L 141 mmol/L Potassium Level 3.4 mmol/L 3.8 mmol/L Chloride Level 98 mmol/L 106 mmol/L Carbon Dioxide Level 26 mmol/L 29 mmol/L Anion Gap 11.0 mmol/L 6.0 mmol/L Blood Urea Nitrogen 17 mg/dl 17 mg/dl Creatinine 1.50 mg/dl 1.20 mg/dl Est Creatinine Clear Calc Drug Dose 62.7 ml/min 78.4 ml/min Estimated GFR () 62.0 81.2 Estimated GFR (Non- 53.5 70.1 BUN/Creatinine Ratio 11.3 14.2 Random Glucose 132 mg/dl 113 mg/dl Lactic Acid Level 1.4 mmol/L Calcium Level 7.9 mg/dl 8.3 mg/dl Total Bilirubin 0.8 mg/dl 0.7 mg/dl Direct Bilirubin 0.2 mg/dl Aspartate Amino Transf (AST/SGOT) 166 U/L 123 U/L Alanine Aminotransferase (ALT/SGPT) 108 U/L 100 U/L Alkaline Phosphatase 107 U/L 100 U/L Total Creatine Kinase 300 U/L Total Protein 7.0 gm/dl 6.7 gm/dl Albumin 3.2 gm/dl 3.0 gm/dl Lipase 353 U/L Procalcitonin 2.62 ng/ml Lyme Disease IgG Antibody NEG Lyme Disease IgM Antibody NEG Monoscreen NEG Fibrinogen 317 mg/dl Fibrin Degradation Products >40 mcg/ml D-Dimer > 23528 ug/L FEU Lactate Dehydrogenase 503 U/L Globulin 3.7 gm/dl Albumin/Globulin Ratio 0.8 Peripheral smear reviewed. No schistocytes. platelets are low with occasional large platelets no clumping seen no parasites seen, neutrophils with some toxic vacuoles, no blasts seen Assessment & Plan 51 year old male admitted with febrile illness, and transaminitis. He has significant thrombocytopenia D dimer and FDP were elevated though PT/PTT not significantly prolonged Thrombocytopenia likely secondary to underlying infection. Recommend monitor CBC w/ diff Repeat D dimer and FSP and fibrinogen and coags Recommend ID consult - he reports recent tick bites Also recommend rule out viral infections - check Hepatitis screen and consider HIV screen I called and discussed with Dr Suarez
--- NOTE | 2016-09-30 14:19 | DIAGNOSTIC IMAGING REPORT ---
ULTRASOUND VENOUS DOPPLER LWR EXT BILA CLINICAL HISTORY: Leg swelling. Thrombocytopenia. Febrile illness. COMPARISON STUDY: No previous studies for comparison. FINDINGS: Real-time and color flow Doppler imaging were performed. Flow was seen within the femoral, popliteal and calf veins with no intraluminal thrombus demonstrated. The saphenous vein is patent. IMPRESSION: No evidence of lower extremity DVT. Electronically signed by: Adriano Yu M.D. 09/30/2016 2:18 PM Dictated Date/Time: 09/30/2016 2:18 PM
[2016-09-30 15:21] VITALS: BP 119/85; PULSE 81; TEMP 36.4; O2SAT 99
[2016-09-30 16:09] LABS: BASO % 0.9 %; BASO ABS # 0.03 K/uL (0-0.2); COMPLETE YES; GIANT PLATELETS 1+; HEMATOCRIT 40.2 % (42-52); IG% 0.3 %; LYMPH % 18.3 %; LYMPH ABS # 0.64 K/uL (1.2-3.4); MEAN CELL VOLUME 87.2 fL (80-100); MEAN CORPUSCULAR HEMOGLOBIN 29.5 pg (25-34); MEAN CORPUSCULAR HGB CONC 33.8 g/dl (32-36); MEAN PLATELET VOLUME 13.5 fL (7.4-10.4); MONO % 11.2 %; NEUT % 69.3 %; PLATELET COUNT 31 K/uL (130-400); RED BLOOD COUNT 4.61 M/uL (4.7-6.1); VACUOLIZATION OCCASIONAL; WHITE BLOOD COUNT 3.49 K/uL (4.8-10.8)
--- NOTE | 2016-09-30 17:14 | Medical Consult ---
Consultation Date of Consultation: Sep 30, 2016. Attending Physician: Severo Suarez MD Reason for Consultation: Tick bite History of Present Illness Patient is an otherwise healthy 51-year-old male who presented to the emergency department with complaints of 3 days of high fever to 103 and insomnia. The patient states that his fever started very abruptly, and he had no associated symptoms initially. He then started to have slight headache, abdominal cramping , nausea, myalgias, and sweats. He had been evaluated in the emergency department 1 day prior to admission and was thought to have dehydration at that time. The patient's labs were stable time, and he was given IV fluids and discharged to home. Upon current admission, the patient's white blood cell count was 3.08, and his platelet count was 28. It was also noted that his liver enzymes were elevated with an AST of 166, and ALT of 108. The patient had blood cultures drawn and urine culture completed. His blood cultures have shown no growth to date. Urine culture was negative. He was started empirically on IV Zosyn and p.o. doxycycline. He states that he has improved substantially since night. The patient did also have a liver ultrasound completed which showed a suspected fatty liver infiltration. Chest x-ray showed no acute disease. Venous Doppler of the bilateral lower extremities showed no evidence of DVT. Patient does not necessarily recall a tick bite, and he is not in the [place] often, but he did have to [place] his beagle into the [place] the other day because it ran off. He feels that this is most likely the time he would have picked up a tick, but he does also note that he often gets deer in his yard. Past Medical/Surgical History Medical Problems: (1) Dehydration Status: Acute (2) Febrile illness Status: Acute (3) Pancytopenia Status: Acute (4) Sepsis Status: Acute (5) Transaminitis Status: Acute Medical Problems: (1) Thrombocytopenia Surgical Hx: Appendectomy (30 years ago) Family History Noncontributory Social History Smoking Status: Never Smoker Smokeless Tobacco Use: No Drug Use: none Marital Status: Housing Status: lives with family Allergies Coded Allergies: No Known Allergies (Unverified , 09/29/16) Home Medications Reported Home Medications Medications Dose Route/Sig Max Daily Dose Days Date Category Aspirin Ec (Aspirin) 81 Mg Tab 81 Mg PO QAM 09/28/16 Reported Lipitor (Atorvastatin Calcium) 10 Mg Tab 10 Mg PO QAM 09/28/16 Reported Zestril (Lisinopril) 10 Mg Tab 10 Mg PO DAILY 09/28/16 Reported Current Inpatient Medications Current Inpatient Medications Medications (Trade) Dose Ordered Sig/Jess Route Start Time Stop Time Status Last Admin Dose Admin Acetaminophen (Tylenol Tab) 650 mg Q6H PRN PO 09/29/16 20:15 10/29/16 20:14 Sodium Chloride 1,000 ml @ 100 mls/hr Q10H IV 09/29/16 21:15 10/29/16 20:14 09/30/16 08:57 100 MLS/HR Doxycycline Hyclate (Vibramycin Cap) 100 mg BID PO 09/29/16 22:00 10/09/16 21:59 09/30/16 08:57 100 MG Review of Systems Constitutional: + fever, + sweats, + fatigue Eyes: No worsening of vision ENT: + sore throat (dry), No hearing loss Respiratory: + problem reported (sore chest muscles), No cough, No shortness of breath Cardiovascular: No chest pain, No palpitations Abdomen: + nausea, + diarrhea (loose stools at home), + problem reported ( decreased appetite), No pain, No vomiting Musculoskeletal: + muscle pain, No joint pain Genitourinary - Male: + problem reported (dark urine, dehydration ), No dysuria , No urinary frequency, No urinary urgency Integumentary: No rash, No itch Physical Exam Date Time Temp Pulse Resp B/P (MAP) Pulse Ox O2 Delivery O2 Flow Rate FiO2 09/30/16 16:00 Room Air 09/30/16 15:21 36.4 81 16 119/85 (96) 99 Room Air 09/30/16 08:00 Room Air 09/30/16 07:48 36.5 66 17 100/65 (77) 98 Room Air 09/30/16 00:00 Room Air 09/29/16 23:16 36.6 78 20 108/71 (83) 98 Room Air 09/29/16 21:57 Room Air 09/29/16 21:22 36.7 71 16 93/49 95 Room Air 09/29/16 21:18 36.7 71 16 93/49 (64) 95 Room Air 09/29/16 21:10 74 16 96/61 98 Room Air 09/29/16 20:05 37.6 88 16 97/67 98 Room Air 09/29/16 19:09 96 16 107/68 96 Room Air 09/29/16 17:53 39.1 103 18 134/82 96 Room Air General Appearance: WD/WN, no apparent distress Head: normocephalic, atraumatic Eyes: normal inspection, sclerae normal ENT: hearing grossly normal Neck: supple, trachea midline Respiratory/Chest: chest non-tender, lungs clear, normal breath sounds, no respiratory distress, no accessory muscle use Cardiovascular: regular rate, rhythm, no murmur Abdomen/GI: normal bowel sounds, non tender, soft Back: normal inspection Extremities/Musculoskelatal: normal inspection, no pedal edema, normal range of motion Neurologic/Psych: alert, normal mood/affect, oriented x 3 Skin: normal color, warm/dry, no rash Laboratory Results Last 24 Hours Test 09/29/16 18:40 09/29/16 21:05 09/30/16 05:10 09/30/16 15:28 White Blood Count 3.08 K/uL 3.61 K/uL 3.49 K/uL Red Blood Count 4.33 M/uL 4.21 M/uL 4.61 M/uL Hemoglobin 13.0 g/dL 12.8 g/dL 13.6 g/dL Hematocrit 38.0 % 37.5 % 40.2 % Mean Corpuscular Volume 87.8 fL 89.1 fL 87.2 fL Mean Corpuscular Hemoglobin 30.0 pg 30.4 pg 29.5 pg Mean Corpuscular Hemoglobin Concent 34.2 g/dl 34.1 g/dl 33.8 g/dl Platelet Count 28 K/uL 28 K/uL 31 K/uL Mean Platelet Volume 12.1 fL 12.6 fL 13.5 fL Neutrophils (%) (Auto) 79.2 % 69.3 % Lymphocytes (%) (Auto) 13.3 % 18.3 % Monocytes (%) (Auto) 7.5 % 11.2 % Eosinophils (%) (Auto) 0.0 % 0.0 % Basophils (%) (Auto) 0.0 % 0.9 % Neutrophils # (Auto) 2.44 K/uL 2.42 K/uL Lymphocytes # (Auto) 0.41 K/uL 0.64 K/uL Monocytes # (Auto) 0.23 K/uL 0.39 K/uL Eosinophils # (Auto) 0.00 K/uL 0.00 K/uL Basophils # (Auto) 0.00 K/uL 0.03 K/uL RDW Standard Deviation 39.4 fL 40.7 fL 40.5 fL RDW Coefficient of Variation 12.2 % 12.6 % 12.5 % Immature Granulocyte % (Auto) 0.0 % 0.3 % Immature Granulocyte # (Auto) 0.00 K/uL 0.01 K/uL Platelet Estimate SIGNIFIC DECREASED SIGNIFIC DECREASED Immature Platelet Fraction 12.2 % Red Blood Cell Morphology Unremarkable Peripheral Blood Smear Path Consult Erythrocyte Sedimentation Rate 24 mm/hr Absolute Reticulocyte Count 0.02 10^6/uL Percent Reticulocyte Count 0.5 % Prothrombin Time 13.2 SECONDS Prothromb Time International Ratio 1.2 Activated Partial Thromboplast Time 34.3 SECONDS Partial Thromboplastin Ratio 1.3 Sodium Level 135 mmol/L 141 mmol/L Potassium Level 3.4 mmol/L 3.8 mmol/L Chloride Level 98 mmol/L 106 mmol/L Carbon Dioxide Level 26 mmol/L 29 mmol/L Anion Gap 11.0 mmol/L 6.0 mmol/L Blood Urea Nitrogen 17 mg/dl 17 mg/dl Creatinine 1.50 mg/dl 1.20 mg/dl Est Creatinine Clear Calc Drug Dose 62.7 ml/min 78.4 ml/min Estimated GFR () 62.0 81.2 Estimated GFR (Non- 53.5 70.1 BUN/Creatinine Ratio 11.3 14.2 Random Glucose 132 mg/dl 113 mg/dl Lactic Acid Level 1.4 mmol/L Calcium Level 7.9 mg/dl 8.3 mg/dl Total Bilirubin 0.8 mg/dl 0.7 mg/dl Direct Bilirubin 0.2 mg/dl Aspartate Amino Transf (AST/SGOT) 166 U/L 123 U/L Alanine Aminotransferase (ALT/SGPT) 108 U/L 100 U/L Alkaline Phosphatase 107 U/L 100 U/L Total Creatine Kinase 300 U/L Total Protein 7.0 gm/dl 6.7 gm/dl Albumin 3.2 gm/dl 3.0 gm/dl Lipase 353 U/L Procalcitonin 2.62 ng/ml Lyme Disease IgG Antibody NEG Lyme Disease IgM Antibody NEG Monoscreen NEG Fibrinogen 317 mg/dl Fibrin Degradation Products >40 mcg/ml D-Dimer > 00613 ug/L FEU Lactate Dehydrogenase 503 U/L Globulin 3.7 gm/dl Albumin/Globulin Ratio 0.8 Toxic Vacuolation OCCASIONAL Giant Platelets 1+ Hepatitis B Surface Antigen NEG Assessment & Plan Patient with acute thrombocytopenia, LFT elevation, fever, fatigue, headache, and recent tick exposure. Lyme screens were negative, but after 2 doses of Doxycycline, patient is feeling better. His symptoms seem consistent with probable Anaplasma infection and possible co-infection. Anaplasma serology pending. Will continue Doxycycline. Likely if patient's labs improve and he continues to improve overall, he will be able to continued Doxycycline 100 mg BID x 14 days to complete treatment for suspected tick borne disease. Case reviewed and agree with above assessment.
[2016-09-30] MEDS ORDERED: ZOLPIDEM TARTRATE 5 MG TAB PO PRN (17:15)
--- NOTE | 2016-09-30 18:27 | Progress Note ---
Internal Med Progress Note Date of Service: Sep 30, 2016. Provider Documentation: SUBJECTIVE: resting comfortably feeling better than yesterday appetite ok felt some swelling on right jaw but improving now afebrile no nausea OBJECTIVE: Vital Signs-as noted below Exam: General-alert and awake. Not in distress ENT-Normal hearing Neck-no neck masses, supple Lungs-cta b/l no wheezing or crackles Heart-s1 and s2 heard irregular , no murmurs Abdomen-soft bowel sounds present non tender no distension Extremities- no edema present no erythema Neuro-alert and awake moves extremities Lab data as noted below. ASSESSMENT & PLAN: FEVER: Likely Tick borne illness vs viral infection given the presentation had couple of small ticks on his right thigh about 1.5 weeks ago presented with febrile illness, thrombocytopenia and leukopenia and elevated lft 's initial lyme negative possible co infection with lyme disease started on doxycycline ID on board will monitor. PANCYTOPENIA Specifically thrombocytopenia, leucopenia--> worsened compared to yesterday Mostly from tick borne illness vs viral illness. seen by heme/onco and appreciate inputs will close monitor labs elevated d dimer mostly from acute infection venous Doppler negative MILDLY ELEVATED LFTS Worsened compared to yesterday Likely associated with above. -US ordered by ER physician -unremarkable will f/u. PASTOR on fluids resolved MILD HYPOKALEMIA replaced. DVT PROPHYLAXIS Low risk SCDS/TEDS re: thrombocytopenia DISPOSITION to be determined Vital Signs: Date Time Temp Pulse Resp B/P (MAP) Pulse Ox O2 Delivery O2 Flow Rate FiO2 09/30/16 16:00 Room Air 09/30/16 15:21 36.4 81 16 119/85 (96) 99 Room Air 09/30/16 08:00 Room Air 09/30/16 07:48 36.5 66 17 100/65 (77) 98 Room Air 09/30/16 00:00 Room Air 09/29/16 23:16 36.6 78 20 108/71 (83) 98 Room Air 09/29/16 21:57 Room Air 09/29/16 21:22 36.7 71 16 93/49 95 Room Air 09/29/16 21:18 36.7 71 16 93/49 (64) 95 Room Air 09/29/16 21:10 74 16 96/61 98 Room Air 09/29/16 20:05 37.6 88 16 97/67 98 Room Air 09/29/16 19:09 96 16 107/68 96 Room Air Lab Results: Results Past 24 Hours Test 09/29/16 18:40 09/29/16 21:05 09/30/16 05:10 09/30/16 15:28 Range/Units White Blood Count 3.08 3.61 3.49 4.8-10.8 K/uL Red Blood Count 4.33 4.21 4.61 4.7-6.1 M/uL Hemoglobin 13.0 12.8 13.6 14.0-18.0 g/dL Hematocrit 38.0 37.5 40.2 42-52 % Mean Corpuscular Volume 87.8 89.1 87.2 80-100 fL Mean Corpuscular Hemoglobin 30.0 30.4 29.5 25-34 pg Mean Corpuscular Hemoglobin Concent 34.2 34.1 33.8 32-36 g/dl Platelet Count 28 28 31 130-400 K/uL Mean Platelet Volume 12.1 12.6 13.5 7.4-10.4 fL Neutrophils (%) (Auto) 79.2 69.3 % Lymphocytes (%) (Auto) 13.3 18.3 % Monocytes (%) (Auto) 7.5 11.2 % Eosinophils (%) (Auto) 0.0 0.0 % Basophils (%) (Auto) 0.0 0.9 % Neutrophils # (Auto) 2.44 2.42 1.4-6.5 K/uL Lymphocytes # (Auto) 0.41 0.64 1.2-3.4 K/uL Monocytes # (Auto) 0.23 0.39 0.11-0.59 K/uL Eosinophils # (Auto) 0.00 0.00 0-0.5 K/uL Basophils # (Auto) 0.00 0.03 0-0.2 K/uL RDW Standard Deviation 39.4 40.7 40.5 36.4-46.3 fL RDW Coefficient of Variation 12.2 12.6 12.5 11.5-14.5 % Immature Granulocyte % (Auto) 0.0 0.3 % Immature Granulocyte # (Auto) 0.00 0.01 0.00-0.02 K/uL Platelet Estimate SIGNIFIC DECREASED SIGNIFIC DECREASED Immature Platelet Fraction 12.2 0.9-8.3 % Red Blood Cell Morphology Unremarkable Peripheral Blood Smear Path Consult Erythrocyte Sedimentation Rate 24 0-14 mm/hr Absolute Reticulocyte Count 0.02 0.02-0.10 10^6/uL Percent Reticulocyte Count 0.5 0.5-2.0 % Prothrombin Time 13.2 9.0-12.0 SECONDS Prothromb Time International Ratio 1.2 0.9-1.1 Activated Partial Thromboplast Time 34.3 21.0-31.0 SECONDS Partial Thromboplastin Ratio 1.3 Sodium Level 135 141 136-145 mmol/L Potassium Level 3.4 3.8 3.5-5.1 mmol/L Chloride Level 98 106 98-107 mmol/L Carbon Dioxide Level 26 29 21-32 mmol/L Anion Gap 11.0 6.0 3-11 mmol/L Blood Urea Nitrogen 17 17 7-18 mg/dl Creatinine 1.50 1.20 0.60-1.40 mg/dl Est Creatinine Clear Calc Drug Dose 62.7 78.4 ml/min Estimated GFR () 62.0 81.2 Estimated GFR (Non- 53.5 70.1 BUN/Creatinine Ratio 11.3 14.2 10-20 Random Glucose 132 113 70-99 mg/dl Lactic Acid Level 1.4 0.4-2.0 mmol/L Calcium Level 7.9 8.3 8.5-10.1 mg/dl Total Bilirubin 0.8 0.7 0.2-1 mg/dl Direct Bilirubin 0.2 0-0.2 mg/dl Aspartate Amino Transf (AST/SGOT) 166 123 15-37 U/L Alanine Aminotransferase (ALT/SGPT) 108 100 12-78 U/L Alkaline Phosphatase 107 100 45-117 U/L Total Creatine Kinase 300 39-308 U/L Total Protein 7.0 6.7 6.4-8.2 gm/dl Albumin 3.2 3.0 3.4-5.0 gm/dl Lipase 353 73-393 U/L Procalcitonin 2.62 0-0.5 ng/ml Lyme Disease IgG Antibody NEG NEG Lyme Disease IgM Antibody NEG NEG Monoscreen NEG NEG Fibrinogen 317 184-400 mg/dl Fibrin Degradation Products >40 <10 mcg/ml D-Dimer > 70042 0-500 ug/L FEU Lactate Dehydrogenase 503 87-241 U/L Globulin 3.7 2.5-4.0 gm/dl Albumin/Globulin Ratio 0.8 0.9-2 Toxic Vacuolation OCCASIONAL Giant Platelets 1+ Hepatitis B Surface Antigen NEG NEG Hepatitis C Antibody NEG NEG Microbiology Results 09/29/16 Blood Culture, Received Pending 09/29/16 Blood Culture, Received Pending
[2016-09-30 23:30] VITALS: BP 117/69; PULSE 76; TEMP 36.9; O2SAT 96
[2016-10-01] MEDS: SODIUM CHLORIDE 0.9% 1000ML 1,000 ML IV SCH ×2 (03:17→13:17)
[2016-10-01 07:18] VITALS: BP 112/74; PULSE 70; TEMP 36.4; O2SAT 97
[2016-10-01] MEDS: DOXYCYCLINE HYCLATE 100 MG CAP PO SCH ×2 (08:00→20:32)
[2016-10-01 11:03] LABS: HEMATOCRIT 37.1 % (42-52); MEAN CELL VOLUME 88.1 fL (80-100); MEAN CORPUSCULAR HEMOGLOBIN 30.6 pg (25-34); MEAN CORPUSCULAR HGB CONC 34.8 g/dl (32-36); RED BLOOD COUNT 4.21 M/uL (4.7-6.1)
[2016-10-01 11:24] LABS: MEAN PLATELET VOLUME 11.9 fL (7.4-10.4); PLATELET COUNT 33 K/uL (130-400)
[2016-10-01 11:47] LABS: ALB/GLOB RATIO 0.8 (0.9-2); BUN/CREATININE RATIO 15.2 (10-20); CALCIUM 8.4 mg/dl (8.5-10.1); CREATININE 1.1 mg/dl (0.60-1.40); POTASSIUM 3.1 mmol/L (3.5-5.1)
[2016-10-01] MEDS ORDERED: POTASSIUM CHLORIDE 10 MEQ TABCR PO STA (11:53)
[2016-10-01 13:29] LABS: COMPLETE YES; LYMPH ABS # 0.46 K/uL (1.2-3.4); LYMPHOCYTE % 12.5 %; NEUTROPHILS % 67.9 %; VARIANT LYM ABS # 0.46 K/uL; VARIANT LYMPHOCYTE % 12.5 %
[2016-10-01 14:35] VITALS: BP 121/82; PULSE 78; TEMP 36.8; O2SAT 99
[2016-10-01 16:00] VITALS: O2SAT 99
--- NOTE | 2016-10-01 16:19 | Progress Note ---
Internal Med Progress Note Date of Service: Oct 01, 2016. Provider Documentation: SUBJECTIVE: comfortable 'feeling lot better afebrile no nausea want to go home OBJECTIVE: Vital Signs-as noted below Exam: General-alert and awake. Not in distress ENT-Normal hearing Neck-no neck masses, supple Lungs-cta b/l no wheezing or crackles Heart-s1 and s2 heard regular , no murmurs Abdomen-soft bowel sounds present non tender no distension Extremities- no edema present no erythema Neuro-alert and awake moves extremities Lab data as noted below. ASSESSMENT & PLAN: FEVER: Likely Tick borne illness vs viral infection given the presentation had couple of small ticks on his right thigh about 1.5 weeks ago presented with febrile illness, thrombocytopenia and leukopenia and elevated lft 's initial lyme negative possible co infection with lyme disease started on doxycycline ID on board improving PANCYTOPENIA Specifically thrombocytopenia, leucopenia--> worsened compared to yesterday Mostly from tick borne illness vs viral illness. seen by heme/onco and appreciate inputs slowly improving will close monitor labs elevated d dimer mostly from acute infection venous Doppler negative MILDLY ELEVATED LFTS Worsened compared to yesterday Likely associated with above. -US ordered by ER physician -unremarkable improving will f/u. PASTOR on fluids resolved MILD HYPOKALEMIA replaced. DVT PROPHYLAXIS Low risk SCDS/TEDS re: thrombocytopenia DISPOSITION possible dc/c in 1-2 days Vital Signs: Date Time Temp Pulse Resp B/P (MAP) Pulse Ox O2 Delivery O2 Flow Rate FiO2 10/01/16 14:35 36.8 78 18 121/82 (95) 99 10/01/16 08:00 Room Air 10/01/16 07:18 36.4 70 18 112/74 (87) 97 10/01/16 00:00 Room Air 09/30/16 23:30 36.9 76 20 117/69 (85) 96 Room Air Lab Results: Results Past 24 Hours Test 10/01/16 10:32 Range/Units White Blood Count 3.70 4.8-10.8 K/uL Red Blood Count 4.21 4.7-6.1 M/uL Hemoglobin 12.9 14.0-18.0 g/dL Hematocrit 37.1 42-52 % Mean Corpuscular Volume 88.1 80-100 fL Mean Corpuscular Hemoglobin 30.6 25-34 pg Mean Corpuscular Hemoglobin Concent 34.8 32-36 g/dl Platelet Count 33 130-400 K/uL Mean Platelet Volume 11.9 7.4-10.4 fL RDW Standard Deviation 41.7 36.4-46.3 fL RDW Coefficient of Variation 12.8 11.5-14.5 % Neutrophils % (Manual) 67.9 % Lymphocytes % (Manual) 12.5 % Variant Lymphocytes % (manual) 12.5 % Monocytes % (Manual) 7.1 % Neutrophils # (Manual) 2.51 1.4-6.5 K/uL Total Absolute Neutrophils 2.51 1.4-6.5 K/uL Lymphocytes # (Manual) 0.46 1.2-3.4 K/uL Absolute Variant Lymphocytes 0.46 K/uL Total Absolute Lymphocytes 0.93 1.2-3.4 K/uL Monocytes # (Manual) 0.26 0.11-0.59 K/uL Red Blood Cell Morphology Unremarkable Sodium Level 142 136-145 mmol/L Potassium Level 3.1 3.5-5.1 mmol/L Chloride Level 106 98-107 mmol/L Carbon Dioxide Level 28 21-32 mmol/L Anion Gap 8.0 3-11 mmol/L Blood Urea Nitrogen 17 7-18 mg/dl Creatinine 1.10 0.60-1.40 mg/dl Est Creatinine Clear Calc Drug Dose 85.5 ml/min Estimated GFR () 90.2 Estimated GFR (Non- 77.9 BUN/Creatinine Ratio 15.2 10-20 Random Glucose 145 70-99 mg/dl Calcium Level 8.4 8.5-10.1 mg/dl Total Bilirubin 0.5 0.2-1 mg/dl Aspartate Amino Transf (AST/SGOT) 89 15-37 U/L Alanine Aminotransferase (ALT/SGPT) 100 12-78 U/L Alkaline Phosphatase 91 45-117 U/L Total Protein 6.7 6.4-8.2 gm/dl Albumin 3.0 3.4-5.0 gm/dl Globulin 3.7 2.5-4.0 gm/dl Albumin/Globulin Ratio 0.8 0.9-2
--- NOTE | 2016-10-01 16:26 | Infectious Disease Progress Nt ---
Progress Note Date of Service Oct 01, 2016. Subjective Pt evaluation today including: conversation w/ patient, physical exam, chart review, lab review, review of studies, review of inpatient medication list Patient continues to feel slightly improved today. He states that he has not had any continued fevers. I repeated his labs this morning. His white blood cell count today was 3.70. His platelet count was very a slightly increased to 33. His AST is trending down and was 89 today. His ALT was stable at 100. His creatinine was also trending down at 1.10. His blood cultures continue to show no growth to date. He had no further imaging studies completed. His and anaplasma serology is pending. All Other Systems: Reviewed and Negative Medications Current Inpatient Medications Medications (Trade) Dose Ordered Sig/Jess Route Start Time Stop Time Status Last Admin Dose Admin Acetaminophen (Tylenol Tab) 650 mg Q6H PRN PO 09/29/16 20:15 10/29/16 20:14 Sodium Chloride 1,000 ml @ 50 mls/hr Q20H IV 09/29/16 21:15 10/29/16 20:14 10/01/16 13:17 50 MLS/HR Doxycycline Hyclate (Vibramycin Cap) 100 mg BID PO 09/29/16 22:00 10/09/16 21:59 10/01/16 08:00 100 MG Zolpidem Tartrate (Ambien Tab) 5 mg HSZ PRN PO 09/30/16 17:15 10/30/16 17:14 09/30/16 22:10 5 MG Objective Vital Signs Date Time Temp Pulse Resp B/P (MAP) Pulse Ox O2 Delivery O2 Flow Rate FiO2 10/01/16 14:35 36.8 78 18 121/82 (95) 99 10/01/16 08:00 Room Air 10/01/16 07:18 36.4 70 18 112/74 (87) 97 10/01/16 00:00 Room Air 09/30/16 23:30 36.9 76 20 117/69 (85) 96 Room Air Physical Exam General Appearance: WD/WN, no apparent distress Eyes: normal inspection, sclerae normal ENT: hearing grossly normal Neck: supple, trachea midline Respiratory/Chest: no respiratory distress, no accessory muscle use Cardiovascular: regular rate, rhythm Extremities: normal range of motion, normal inspection Neurologic/Psychiatric: alert, normal mood/affect Skin: normal color, warm/dry, no rash Laboratory Results Item Value Date Time Blood Culture - Preliminary Resulted 09/29/161904 Blood NO GROWTH TO DATE. Blood Culture - Preliminary Resulted 09/29/161839 Blood NO GROWTH TO DATE. Last 24 Hours Test 10/01/16 10:32 White Blood Count 3.70 K/uL Red Blood Count 4.21 M/uL Hemoglobin 12.9 g/dL Hematocrit 37.1 % Mean Corpuscular Volume 88.1 fL Mean Corpuscular Hemoglobin 30.6 pg Mean Corpuscular Hemoglobin Concent 34.8 g/dl Platelet Count 33 K/uL Mean Platelet Volume 11.9 fL RDW Standard Deviation 41.7 fL RDW Coefficient of Variation 12.8 % Neutrophils % (Manual) 67.9 % Lymphocytes % (Manual) 12.5 % Variant Lymphocytes % (manual) 12.5 % Monocytes % (Manual) 7.1 % Neutrophils # (Manual) 2.51 K/uL Total Absolute Neutrophils 2.51 K/uL Lymphocytes # (Manual) 0.46 K/uL Absolute Variant Lymphocytes 0.46 K/uL Total Absolute Lymphocytes 0.93 K/uL Monocytes # (Manual) 0.26 K/uL Red Blood Cell Morphology Unremarkable Sodium Level 142 mmol/L Potassium Level 3.1 mmol/L Chloride Level 106 mmol/L Carbon Dioxide Level 28 mmol/L Anion Gap 8.0 mmol/L Blood Urea Nitrogen 17 mg/dl Creatinine 1.10 mg/dl Est Creatinine Clear Calc Drug Dose 85.5 ml/min Estimated GFR () 90.2 Estimated GFR (Non- 77.9 BUN/Creatinine Ratio 15.2 Random Glucose 145 mg/dl Calcium Level 8.4 mg/dl Total Bilirubin 0.5 mg/dl Aspartate Amino Transf (AST/SGOT) 89 U/L Alanine Aminotransferase (ALT/SGPT) 100 U/L Alkaline Phosphatase 91 U/L Total Protein 6.7 gm/dl Albumin 3.0 gm/dl Globulin 3.7 gm/dl Albumin/Globulin Ratio 0.8 Assessment and Plan Patient with acute thrombocytopenia, LFT elevation, fever, fatigue, headache, and recent tick exposure consistent with 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 Quick response to doxycycline a also helps fever tick-borne illness. The patient has an a plasma serology is pending, and he continues to be thrombocytopenic. Recommend continuing of p.o. doxycycline 100 mg b.i.d. to complete 14 days. Once cleared by the medical service, patient is okay for discharge from Infectious Disease perspective. Thank you. Will follow up as outpatient. Case reviewed and agree with above assessment.
[2016-10-01 18:53] LABS: FIBRINOGEN* 330 mg/dl (184-400); INR 1.1 (0.9-1.1); PARTIAL THROMBOPLASTIN RATIO 1.2
[2016-10-01 23:28] VITALS: BP 95/54; PULSE 63; TEMP 36.9; O2SAT 98
[2016-10-02 07:20] VITALS: BP 110/71; PULSE 71; TEMP 36.8; O2SAT 97
[2016-10-02 07:45] LABS: BASO % 1.9 %; BASO ABS # 0.09 K/uL (0-0.2); COMPLETE YES; EOS % 0.6 %; HEMATOCRIT 34.7 % (42-52); IG% 0.2 %; LYMPH % 43.8 %; MEAN CELL VOLUME 87.6 fL (80-100); MEAN CORPUSCULAR HEMOGLOBIN 30.6 pg (25-34); MEAN CORPUSCULAR HGB CONC 34.9 g/dl (32-36); MEAN PLATELET VOLUME 12.3 fL (7.4-10.4); MONO % 11.9 %; NEUT % 41.6 %; PLATELET COUNT 63 K/uL (130-400); RED BLOOD COUNT 3.96 M/uL (4.7-6.1)
[2016-10-02 08:00] VITALS: O2SAT 97
[2016-10-02] MEDS: DOXYCYCLINE HYCLATE 100 MG CAP PO SCH (08:05)
[2016-10-02 08:19] LABS: BUN/CREATININE RATIO 12.8 (10-20); CALCIUM 8.4 mg/dl (8.5-10.1); CREATININE 1.1 mg/dl (0.60-1.40); MAGNESIUM 2.2 mg/dl (1.8-2.4); POTASSIUM 3.9 mmol/L (3.5-5.1)
[2016-10-02] MEDS ORDERED: DXY100 PO ×3 (10:13→10:14)
[2016-10-02] MEDS ORDERED: LCTX PO ×3 (10:13→10:14)
[2016-10-02] MEDS ORDERED: NURSING VERBAL MED ORDER ONE (10:15)
--- NOTE | 2016-10-02 10:16 | Discharge Instructions ---
Discharge Instructions Date of Service Oct 02, 2016. Admission Reason for Admission: Febrile Illness, Thrombocytopenia Discharge Discharge Diagnosis / Problem: febrile illness,leukopenia/thrombocytopenia, lyme/anaplasmosis Discharge Goals Goal(s): Decrease discomfort, Improve function Activity Recommendations Activity Limitations: resume your previous activity . Instructions / Follow-Up Instructions / Follow-Up FOLLOWUP WITH FAMILY DOCTOR ON September AT 11AM LAB: CBC WITH DIFF AND CMP IN 3-5 DAYS AND FOLLOW RESULTS WITH FAMILY DOCTOR. TRY TO AVOID SUN WHILE ON DOXYCYCLINE. Current Hospital Diet Patient's current hospital diet: Regular Diet Discharge Diet Recommended Diet: Regular Diet Pending Studies Studies pending at discharge: no Medical Emergencies . Who to Call and When: Medical Emergencies: If at any time you feel your situation is an emergency, please call 911 immediately. . Non-Emergent Contact Non-Emergency issues call your: Primary Care Provider . . "Provider Documentation" section prepared by Severo Suarez. . VTE Core Measure Inpt VTE Proph given/why not?: SCD's
[2016-10-02 10:17] VITALS: BP 110/71; PULSE 71; TEMP 36.8; O2SAT 97
--- NOTE | 2016-10-02 18:58 | Progress Note ---
Internal Med Progress Note Date of Service: Oct 02, 2016. Provider Documentation: SUBJECTIVE: sitting on the chair comfortably afebrile no sob feeling much better want to go home OBJECTIVE: Vital Signs-as noted below Exam: General-alert and awake. Not in distress ENT-Normal hearing Neck-no neck masses, supple Lungs-cta b/l no wheezing or crackles Heart-s1 and s2 heard regular , no murmurs Abdomen-soft bowel sounds present non tender no distension Extremities- no edema present no erythema Neuro-alert and awake moves extremities Lab data as noted below. ASSESSMENT & PLAN: FEVER: Likely Tick borne illness vs viral infection given the presentation had couple of small ticks on his right thigh about 1.5 weeks ago presented with febrile illness, thrombocytopenia and leukopenia and elevated lft 's initial lyme negative possible co infection with lyme disease started on doxycycline ID on board much improved d/florina on po doxycycline for 14 days PANCYTOPENIA Specifically thrombocytopenia, leucopenia--> worsened compared to yesterday Mostly from tick borne illness vs viral illness. seen by heme/onco and appreciate inputs slowly improving platelets today 63. Leukopenia resolved f/u labs with pcp elevated d dimer mostly from acute infection venous Doppler negative MILDLY ELEVATED LFTS Worsened compared to yesterday Likely associated with above. -US ordered by ER physician -unremarkable improving f/u with pcp PASTOR on fluids resolved MILD HYPOKALEMIA replaced. Discharged home Vital Signs: Date Time Temp Pulse Resp B/P (MAP) Pulse Ox O2 Delivery O2 Flow Rate FiO2 10/02/16 10:17 36.8 71 18 97 Room Air 10/02/16 08:00 97 Room Air 10/02/16 07:20 36.8 71 18 110/71 (84) 97 10/02/16 00:15 Room Air 10/01/16 23:28 36.9 63 20 95/54 (68) 98 Room Air Lab Results: Results Past 24 Hours Test 10/02/16 06:44 Range/Units White Blood Count 4.80 4.8-10.8 K/uL Red Blood Count 3.96 4.7-6.1 M/uL Hemoglobin 12.1 14.0-18.0 g/dL Hematocrit 34.7 42-52 % Mean Corpuscular Volume 87.6 80-100 fL Mean Corpuscular Hemoglobin 30.6 25-34 pg Mean Corpuscular Hemoglobin Concent 34.9 32-36 g/dl Platelet Count 63 130-400 K/uL Mean Platelet Volume 12.3 7.4-10.4 fL Neutrophils (%) (Auto) 41.6 % Lymphocytes (%) (Auto) 43.8 % Monocytes (%) (Auto) 11.9 % Eosinophils (%) (Auto) 0.6 % Basophils (%) (Auto) 1.9 % Neutrophils # (Auto) 2.00 1.4-6.5 K/uL Lymphocytes # (Auto) 2.10 1.2-3.4 K/uL Monocytes # (Auto) 0.57 0.11-0.59 K/uL Eosinophils # (Auto) 0.03 0-0.5 K/uL Basophils # (Auto) 0.09 0-0.2 K/uL RDW Standard Deviation 42.0 36.4-46.3 fL RDW Coefficient of Variation 12.9 11.5-14.5 % Immature Granulocyte % (Auto) 0.2 % Immature Granulocyte # (Auto) 0.01 0.00-0.02 K/uL Sodium Level 144 136-145 mmol/L Potassium Level 3.9 3.5-5.1 mmol/L Chloride Level 108 98-107 mmol/L Carbon Dioxide Level 27 21-32 mmol/L Anion Gap 9.0 3-11 mmol/L Blood Urea Nitrogen 14 7-18 mg/dl Creatinine 1.10 0.60-1.40 mg/dl Est Creatinine Clear Calc Drug Dose 85.5 ml/min Estimated GFR () 90.2 Estimated GFR (Non- 77.9 BUN/Creatinine Ratio 12.8 10-20 Random Glucose 95 70-99 mg/dl Calcium Level 8.4 8.5-10.1 mg/dl Magnesium Level 2.2 1.8-2.4 mg/dl Total Bilirubin 0.5 0.2-1 mg/dl Direct Bilirubin 0.1 0-0.2 mg/dl Aspartate Amino Transf (AST/SGOT) 75 15-37 U/L Alanine Aminotransferase (ALT/SGPT) 98 12-78 U/L Alkaline Phosphatase 87 45-117 U/L Total Protein 6.6 6.4-8.2 gm/dl Albumin 3.0 3.4-5.0 gm/dl
--- NOTE | 2016-10-02 19:09 | Discharge Summary ---
Discharge Summary Date of Service Oct 02, 2016. Discharge Summary Admission Date: Sep 29, 2016 at 20:12 Discharge Date: Oct 02, 2016 Discharge Disposition: Home Principal Diagnosis: FEBRILE ILLNESS PANCYTOPENIA ELEVATED LFT'S MOSTLY LYME/ANAPLASMOSIS Procedures: LIVER US: 1. Suspected fatty infiltration of the liver. 2. No gallstones or biliary ductal dilatation. VENOUS DOPPLER: No evidence of lower extremity DVT. CXR: No acute cardiopulmonary findings. Consultations: ID HEME/ONCO Medication Reconciliation New Medications: Lactobacillus Acidophilus (Lactinex) Tab 2 TAB PO BID for 14 Days, #56 TAB Doxycycline Hyclate (Doxycycline Hyclate) 100 Mg Cap 100 MG PO BID for 14 Days, #28 CAP Continued Medications: Aspirin (Aspirin Ec) 81 Mg Tab 81 MG PO QAM Atorvastatin (Lipitor) 10 Mg Tab 10 MG PO QAM, TAB Lisinopril (Zestril) 10 Mg Tab 10 MG PO DAILY, TAB Admission Information HPI (per Admitting provider): The patient is a 51 year old male with no significant PMH, who presents to the Emergency Room with complaints of fever. Patient's symptoms started 3 days ago with sudden onset of fatigue followed by fever for which he came to ER from PCP office. on 09/28/16- in ER- CBC- no leucocytosis, platelets-94, creatinine1.50 - was discharged home with possible diagnosis of viral illness. Returned back to ER because he felt worsening of fatigue, with new onset nausea, headaches, continued to have poor appetite- decreased PO intake. Had 2 loose BMs today with no blood. No abdominal pain, vomiting, cough, SOB, chest pain, rash, leg swelling, joint pains. Admits to few tick bites 1.5 weeks ago when [place]. No recent travel, exposure to sick contacts. In ED, febrile with 39.1, CBC- Wbc 3.08, platelets- 28, creatinine 1.50, K 3.4, AST/ALT- worsened from yesterday - 166/108. ED physician discussed with [employer], who recommended blood tests which were ordered. Received a dose of IV Zosyn in ER. We will admit him for further evaluation and management of febrile illness with thrombocytopenia/leucopenia, PASTOR. Physical Exam (per Admitting): General Appearance: no apparent distress Head: normocephalic, atraumatic Eyes: PERRL ENT: hearing grossly normal Neck: supple, no JVD Respiratory/Chest: chest non-tender, lungs clear, normal breath sounds, no respiratory distress, no accessory muscle use Cardiovascular: regular rate, rhythm, no edema, no murmur Abdomen/GI: normal bowel sounds, non tender, soft, no organomegaly Back: no CVA tenderness Extremities/Musculoskelatal: no calf tenderness, no pedal edema Neurologic/Psych: no motor/sensory deficits, alert, oriented x 3 Skin: normal color, no rash Lymphatic: no adenopathy Hospital Course FEVER: Likely Tick borne illness vs viral infection given the presentation had couple of small ticks on his right thigh about 1.5 weeks ago presented with febrile illness, thrombocytopenia and leukopenia and elevated lft 's initial lyme negative possible co infection with lyme disease started on doxycycline ID on board much improved d/florina on po doxycycline for 14 days PANCYTOPENIA Specifically thrombocytopenia, leucopenia--> worsened compared to yesterday Mostly from tick borne illness vs viral illness. seen by heme/onco and appreciate inputs slowly improving platelets today 63. Leukopenia resolved f/u labs with pcp elevated d dimer mostly from acute infection venous Doppler negative MILDLY ELEVATED LFTS Worsened compared to yesterday Likely associated with above. -US ordered by ER physician -unremarkable improving f/u with pcp PASTOR on fluids resolved MILD HYPOKALEMIA replaced. Discharged home Total time spent on discharge = 35MINUTES This includes examination of the patient, discharge planning, medication reconciliation, and communication with other providers. Discharge Instructions Discharge Instructions Date of Service Oct 02, 2016. Admission Reason for Admission: Febrile Illness, Thrombocytopenia Discharge Discharge Diagnosis / Problem: febrile illness,leukopenia/thrombocytopenia, lyme/anaplasmosis Discharge Goals Goal(s): Decrease discomfort, Improve function Activity Recommendations Activity Limitations: resume your previous activity . Instructions / Follow-Up Instructions / Follow-Up FOLLOWUP WITH FAMILY DOCTOR ON September AT 11AM LAB: CBC WITH DIFF AND CMP IN 3-5 DAYS AND FOLLOW RESULTS WITH FAMILY DOCTOR. TRY TO AVOID SUN WHILE ON DOXYCYCLINE. Current Hospital Diet Patient's current hospital diet: Regular Diet Discharge Diet Recommended Diet: Regular Diet Pending Studies Studies pending at discharge: no Medical Emergencies . Who to Call and When: Medical Emergencies: If at any time you feel your situation is an emergency, please call 911 immediately. . Non-Emergent Contact Non-Emergency issues call your: Primary Care Provider . .
[2016-10-05 21:53] LABS: EBV EARLY ANTIGEN AB <9.00 U/ML; EPSTEIN BARR VIR CAPSID IGG >750.00 U/ML
[2016-10-05 21:53] LABS: ANAPLASMA PHAGOCYTOPHIL IGG <1:64 (<1:64); ANAPLASMA PHAGOCYTOPHIL IGM <1:20 (<1:20)
== END 2016-10-02 11:32 | disposition home or self-care (01) | DRG 868 ==
LOC: C.EDB 17:48 → C.MS2W 20:12 → ENRESERV 20:43
PROVIDERS: ADMIT Internal Medicine; ATTEND Internal Medicine
DX: A69.20 Lyme disease, unspecified (principal); D61.818 Other pancytopenia; B17.9 Acute viral hepatitis, unspecified; N17.9 Acute kidney failure, unspecified; A77.49 Other ehrlichiosis; E86.0 Dehydration; E87.6 Hypokalemia; Z79.82 Long term (current) use of aspirin